=== PATIENT | female | born 1945 | race Caucasian/White ===

== ENCOUNTER 2019-04-03 13:00 | Outpatient (RCR) | payer MEDICARE, OTHER ==
--- NOTE | 2019-02-27 16:40 | PT INITIAL EVALUATION ---
MEDICAL DIAGNOSIS: M25.561 Pain in R knee TREATMENT DIAGNOSIS: Same DATE OF ONSET: 12/27/18 SUBJECTIVE: Calista Jon presents to PT for lateral and posterior R knee pain, insidious onset since Dec, 2018. She is working on walking 5,000 to 7500 steps per day. She denies knee injuries. She lives in a single level home, 3 steps into home with handrail. She reports she's been tripping over her own heels at times when walking on level surface. She does Umberto Chi for balance and has trouble orienting her R foot forward instead of outward. Knee FOTO 26%. Pain location is R distal IT band, peroneals, posterior knee and described as tightness, ache. Pain scale is 4 on a ten point pain scale. Pain is worse with after walking, trying to sleep at night, sometimes when sedentary and better with unsure. REHAB PROBLEM LIST: Increased Pain Decreased ROM Impaired Bed Mobility Decreased Strength Decreased Gait PREVIOUS MEDICAL HISTORY: L foot fracture in the s, hysterectomy, bunions, HTN, hypercholesteremia. OCCUPATION: Retired, [employer], participates in [employer]. OBJECTIVE: Posture: R anterior ilium, ER R LE 30 deg., pelvis with mild R rotation, R HAV II< L HAV I. Supine: L anteverted femur, grossly 8-10 degrees, 0 deg. R hip. ROM: B knee AROM extension 0 deg., PROM flexion WNL, R tight soft tissue with overpressure, no popliteal fossa pain. R hip PROM restricted in flexion 110 deg, adduction in flexion, IR at 90 deg. flexion 25 deg., ER 35 degrees. L hip PROM flexion 120 deg., IR 30, ER 40 degrees. R ankle PROM DF 10 deg., L 15 degrees. Strength: LE's 5-/5 hamstrings, calves, 5/5 quads, Tib. ant., peroneals. Palpation: Painful, tight myofascial component R lateral hip/IT band/peroneals. Question of small Portillo's cyst in R popliteal fossa. Special Tests: Negative SLR, B, for knee symptoms. Positive B Brian and R Mari's test for reduced flexibility. Mobility: Difficulty with bridging, rolling. Gait: Gait with apparent long R LE, R LE ER 30 deg., L normal angle of progression. ASSESSMENT: Calista Jon presents with R lateral and posterior knee soft tissue pain from LE accommodations due to L anteverted hip, postural changes including R pelvic rotation, soft tissue pain and tightness. She's started on a stretching HEP to begin to normalize soft tissue flexibility. Short Term Goals/Patient's Goals 1 month: Calista reports R lateral knee pain is 2/10 at night and with walking 4,000 steps. 2 months: Calista reports she can do Umberto Chi with her foot oriented forward, rates R lateral knee pain is 1/10 at night, does a hamstring stretch without lateral knee pain. 3 months: Calista denies R lateral knee pain with walking, at night, denies catching her heels when walking to reduce fall risk. PLAN: Patient to be seen for Manual Therapy, Strengthening/condition, Ice/Heat, Range of Motion, Spinal Stabilization, Stretching, Neuromuscular Re-ed, Electrical Stim, Posture/Body mechanics, Gait Trg/Balance Trg, HEP 1x/Week for 8-12 weeks Thank you for this referral. If you have any questions, comments, or concerns about this report or plan, please contact me at . SHANNAN Fulton date MTDD
[~2019-04-03 13:00] MED LIST: ATOR10TA24 PO; EST5T TD; HYDR12.558 PO; LISI-353 PO; RAMI5CAP72 PO; SIMV-54 PO
--- NOTE | 2019-04-03 13:48 | PT PLAN OF CARE ---
Physician: SHANNAN Fulton Patient is being seen: 1x/week Therapist: Coni Allan PT Medical Diagnosis: M25.561 Pain in R knee Treatment Diagnosis: Same Date of Onset: 12/27/18 Date of Initial Evaluation: 02/27/19 Date patient was last seen: 04/03/19 Number of treatments: 6 Number of cancellations/No shows: 0 INTERVENTIONS: Manual Therapy, Strengthening, Ice/Heat, Range of Motion/Stretching, Gait Trg, Orthotic adjust, HEP GOALS/PATIENT'S GOAL: all met: 1 month: Calista reports R lateral knee pain is 2/10 at night and with walking 4,000 steps. 2 months: Calista reports she can do Umberto Chi with her foot oriented forward, rates R lateral knee pain is 1/10 at night, does a hamstring stretch without lateral knee pain. 3 months: Calista denies R lateral knee pain with walking, at night, denies catching her heels when walking to reduce fall risk. Patient Compliance: Excellent Prognosis: Excellent Reasons for discontinuing therapy: S: Calista relates her R lateral, posterior knee pain is gone. She's doing Umberto Chi, has ambulated 4,000 steps, sleeps without knee pain. O: Posture: Even ilium. Gait: With posted orthotics, Calista ambulates with push off through the 2nd metatarsal, not her 1st MTP (HAV). ROM: Mild tightness of R G. medius, gastrocnemius compared to L. It band flexibility is WNL. Hamstring flexibility 70 deg. R, 75 deg. L, soleus B 18 deg. DF, gastrocnemius 15 deg. R, 18 deg. L DF. Strength: Hip abductors 5-/5 B. A/P: Calista Jon has improved flexibility, strength, gait to alleviate her R knee pain. I'll DC PT to stretching HEP to address last bit of R LE tightness. Thank you. BARBARA
== END 2019-04-03 18:00 | disposition home or self-care (01) ==
LOC: PT 13:00
PROVIDERS: ATTEND Nurse Practitioner Psychiatric/Mental Health
DX: M25.561 Pain in right knee (principal)
CPT/HCPCS: 97162